=== PATIENT | female | born 1955 | race Caucasian/White ===

== ENCOUNTER → 2023-07-25 | Outpatient (CLI) | payer OTHER ==
[~2023-07-25] MED LIST: IOHEXOL 350 MG/ML 100ML INFUS..BTL IV ONE; METOPROLOL TARTRATE 1 MG/ML 5ML VIAL IV ONE
== END | disposition home or self-care (01) ==
LOC: RAH 12:12
PROVIDERS: ATTEND Student in an Organized Health Care Education/Training Program
DX: R07.9 Chest pain, unspecified (principal)
CPT/HCPCS: 75574; J3490; Q9967

== ENCOUNTER 2023-08-01 06:52 | Day surgery (SDC) | payer OTHER ==
[2023-07-25 13:08] LABS: BASOPHILS # (AUTO) 0.03 K/uL (0.00-0.20); BASOPHILS % (AUTO) 0.4 % (0.0-5.0); EOSINOPHILS # (AUTO) 0.05 K/uL (0.00-0.70); EOSINOPHILS % (AUTO) 0.7 % (0.0-8.0); HEMATOCRIT 44.9 % (36-48); IMMATURE GRANULOCYTE ABSOLUTE 0.04 K/uL (0-1); LYMPHOCYTES # (AUTO) 1.5 K/uL (1.0-4.8); LYMPHOCYTES % (AUTO) 22.5 % (21.0-51.0); MEAN CORPUSCULAR HEMOGLOBIN 28.4 pg (27.0-33.0); MEAN CORPUSCULAR HGB CONC 32.5 g/dL (32.0-36.0); MEAN CORPUSCULAR VOLUME 87.4 fL (79-99); MONOCYTES # (AUTO) 0.5 K/uL (0.1-1.0); MONOCYTES % (AUTO) 6.9 % (3.0-13.0); NEUTROPHILS # (AUTO) 4.7 K/uL (1.8-7.7); NEUTROPHILS % (AUTO) 68.9 % (40.0-77.0); PLATELET COUNT (AUTO) 211 K/uL (130-400); RED BLOOD CELL COUNT(AUTO) 5.14 MIL/uL (4.00-5.50); RED CELL DISTRIBUTION WIDTH 15.3 % (11.0-15.5); WHITE BLOOD COUNT (AUTO) 6.8 K/uL (4.8-10.8)
[2023-07-25 13:17] LABS: ALBUMIN 3.8 g/dL (3.5-5.0); BILIRUBIN,TOTAL 0.6 mg/dL (0.2-1.0); CREATININE 0.7 mg/dL (0.5-1.5); POTASSIUM 4.9 mmol/L (3.5-5.1); TOTAL PROTEIN, SERUM 7.3 g/dL (6.0-8.3)
[~2023-08-01] VITALS: Ht 152.4 cm; Wt 48.5 kg
[2023-08-01] MEDS ORDERED: 0.9%NACL 1000ML 1,000 ML IV ONE (07:09)
[2023-08-01 07:26] VITALS: BP 167/70; PULSE 85; RESP 16
[2023-08-01] MEDS ORDERED: CITA40TA14 PO ×2 (07:41)
[2023-08-01] MEDS ORDERED: LINA5TAB PO ×2 (07:41)
[2023-08-01] MEDS ORDERED: EMPA25TA PO ×2 (07:41)
[2023-08-01] MEDS ORDERED: PROPOFOL 10 MG/ML 20ML VIAL IV ONE ×2 (07:41→08:38)
[2023-08-01] MEDS ORDERED: LISI40TA9 PO ×2 (07:41)
[2023-08-01] MEDS ORDERED: ZOLP12.555 PO ×2 (07:41)
[2023-08-01] MEDS ORDERED: PIOG45TA64 PO ×2 (07:41)
[2023-08-01] MEDS ORDERED: GLYCOPYRROLATE 0.2 MG/ML 5 ML VIAL ONE (07:42)
[2023-08-01] MEDS ORDERED: LIDOCAINE PF 100MG/5ML (2%) SYRINGE 5ML ONE (07:42)
[2023-08-01] MEDS ORDERED: FENTANYL CITRATE PF 50 MCG/1 ML 2ML VIAL ONE (08:38)
== END 2023-08-01 09:30 | disposition home or self-care (01) ==
LOC: ENDO 06:52 → DAH 06:52 → ENDO 09:30
PROVIDERS: ATTEND Student in an Organized Health Care Education/Training Program
DX: Z12.11 Encounter for screening for malignant neoplasm of colon (principal); D12.3 Benign neoplasm of transverse colon; D48.61 Neoplasm of uncertain behavior of right breast; K80.20 Calculus of gallbladder without cholecystitis without obstruction; I10 Essential (primary) hypertension; E11.9 Type 2 diabetes mellitus without complications; E78.00 Pure hypercholesterolemia, unspecified; F41.9 Anxiety disorder, unspecified; F32.A Depression, unspecified; Z82.49 Family history of ischemic heart disease and other diseases of the circulatory system; Z79.899 Other long term (current) drug therapy; Z79.01 Long term (current) use of anticoagulants
CPT/HCPCS: 80053; 85025; 36415; 82948; 88305; 45385; J3010; J7030 ×2; J2001; J2704 ×2; J3490; A4620; A4215 ×2; A4223; A7002; A4222; A4221; A4663; A4606

== ENCOUNTER → 2023-08-01 | Outpatient (CLI) | payer OTHER ==
[~2023-08-01] MED LIST changes: +CITA40TA14 PO; +EMPA25TA PO; +FENTANYL CITRATE PF 50 MCG/1 ML 2ML VIAL ONE; -IOHEXOL 350 MG/ML 100ML INFUS..BTL IV ONE; +LINA5TAB PO; +LISI40TA9 PO; -METOPROLOL TARTRATE 1 MG/ML 5ML VIAL IV ONE; +PIOG45TA64 PO; +PROPOFOL 10 MG/ML 20ML VIAL IV ONE; +ZOLP12.555 PO
== END | disposition home or self-care (01) ==
LOC: RAH 13:53 → EDUNIT# 14:00
PROVIDERS: ATTEND Student in an Organized Health Care Education/Training Program
DX: R92.30 Dense breasts, unspecified (principal); D48.61 Neoplasm of uncertain behavior of right breast
CPT/HCPCS: 77066; J2704; J3010; J3490